=== PATIENT | female | born 1995 | race Caucasian/White ===

== ENCOUNTER 2019-12-19 14:23 | Inpatient (IN) | payer MEDICAID, OTHER ==
[~2019-12-19] VITALS: Ht 152.4 cm; Wt 100.0 kg
[2019-12-19] MEDS ORDERED: AMPH1CAP15 PO (15:25)
[2019-12-19] MEDS ORDERED: MONT10TA4 PO (15:25)
[2019-12-19] MEDS ORDERED: MULTCAP PO (15:25)
[2019-12-19] MEDS ORDERED: LEVOTAB10 PO (15:25)
[2019-12-19] MEDS ORDERED: TOPA50TA8 PO (15:25)
[2019-12-19] MEDS ORDERED: VENL75CA2 PO (15:25)
[2019-12-19] MEDS ORDERED: LEVO50TA5 PO (15:25)
[2019-12-19] MEDS ORDERED: METF-791 PO (15:25)
[2019-12-19] MEDS ORDERED: PREV30TA3 PO (15:25)
[2019-12-19] MEDS ORDERED: LEVO25TA34 PO (19:40)
[2019-12-19] MEDS ORDERED: MOM 30ML SUSPENSION UDC PO PRN (19:45)
[2019-12-19] MEDS ORDERED: ACETAMINOPHEN TAB 650MG DOSE (2X325MG) PO PRN (19:45)
[2019-12-19] MEDS ORDERED: MAALOX 30 ML SUSP *UDC PO PRN (19:45)
[2019-12-19] MEDS ORDERED: LORazepam 2 MG TAB PO PRN (19:45)
[2019-12-19 20:41] VITALS: BP 142/92
[2019-12-19] MEDS: THIAMINE 100 MG TAB PO SCH (23:13)
[2019-12-19] MEDS: traZODone 50 MG TAB PO PRN (23:13)
[2019-12-20 06:00] VITALS: BP 146/84
[2019-12-20 06:05] VITALS: BP 146/84
[2019-12-20] MEDS: LEVOTHYROXINE 25MCG TABLET (0.025MG) PO SCH (06:10)
[2019-12-20] MEDS ORDERED: MULTIVITAMINS/MINERALS THERAP 1 TAB PO SCH (09:00)
[2019-12-20] MEDS ORDERED: FOLIC ACID 1 MG TAB PO SCH (09:00)
[2019-12-20 09:03] VITALS: BP 130/84
[2019-12-20] MEDS: THIAMINE 100 MG TAB PO SCH ×2 (09:05→21:04)
[2019-12-20] MEDS: VENLAFAXINE **XR** 75MG CAPSULE PO SCH (09:05)
[2019-12-20] MEDS: LANSOPRAZOLE SUSPENSION 30 MG/10 ML ORAL SYRINGE (FIRST-LANSOPRAZOLE) PO SCH (09:05)
[2019-12-20] MEDS: MONTELUKAST 10 MG TAB PO SCH (09:06)
[2019-12-20] MEDS: metFORMIN XR 500MG TAB *GLUCOPHAGE XR PO SCH ×2 (09:06→21:04)
[2019-12-20] MEDS: TOPIRAMATE (TopAMAX) 25 MG TAB PO SCH ×2 (09:06→21:05)
--- NOTE | 2019-12-20 09:44 | MHHPEPDOC ---
[facility] History & Physical History and Physical DATE OF ADMISSION: Dec 19, 2019 at 19:45 LEGAL STATUS AT ADMISSION: . CHIEF COMPLAINT: . HISTORY OF PRESENT ILLNESS: Patient is a 24-year-old female, who PSYCHIATRIC REVIEW OF SYSTEMS: Affective: . Anxiety: . Trauma: . Psychosis: . Personality: . PAST PSYCHIATRIC HISTORY: Prior Psychiatric Disorder: . Outpatient Treatment: . Suicidal/Self injurious: [Denies]. Psychotropic Medication History: . ALLERGIES: Please see below. FAMILY PSYCHIATRIC HISTORY: [Denies]. SOCIAL HISTORY: Early Relations/development: . Sibling order: . Paternal relationships: . Education: . Occupational: . Legal: . Marital: . Economic: . Supports: . Abuse/trauma: . SUBSTANCE ABUSE HISTORY: . PAST MEDICAL/SURGICAL HISTORY: [None]. VITAL SIGNS: Please see below. MENTAL STATUS EXAMINATION: General appearance: Patient is a -year old female, who is . Speech: . Thought processes: . Thought content: . Abstract reasoning and computation: . Description of associations: . Description of abnormal or psychotic thoughts: . Judgment: . Insight: . Orientation: . Recent and remote memory: . Attention span and concentration: . Fund of knowledge: . Mood: "." Affect: . DIAGNOSES: 1. . 2. . 3. . ASSESSMENT: PROBLEM LIST: 1. . 2. . 3. . INITIAL TREATMENT PLAN: 1. Patient was admitted on . 2. Complete history was obtained. 3. With patients permission, family will be contacted and database will be expanded. 4. Patients medication regimen will be reviewed and changed accordingly. 5. Patient will be provided with protected environment. 6. Patient will be treated with individual, group, and milieu therapies. 7. Patient will receive supportive psych-education. 8. Discharge planning will commence immediately. 9. Outpatient follow-up treatment will be strongly recommended. 10. The initial treatment plan will focus initially on: * Depression. * Risk for suicide. * Substance abuse. ESTIMATED LENGTH OF STAY: - DAYS. TIME SPENT COUNSELING AND COORDINATING INITIAL CARE: minutes. Vital Signs Vital Signs Date Time Temp Pulse Resp B/P (MAP) Pulse Ox O2 Delivery O2 Flow Rate FiO2 12/20/19 09:03 92 130/84 12/20/19 06:05 98.8 18 12/19/19 20:41 99 Room Air Medications Scheduled Dextroamphetamine/Amphetamine (Dextroamp-Amphet ER 15 mg Cap) 15 Mg Cap.er.24h, 1 CAP PO QAM, (Reported) TAKES NEEDED FOR CONCENTRATION Lansoprazole (Prevacid) 30 Mg Tab.rap.dr, 30 MG PO DAILY, (Reported) Levocetirizine Dihydrochloride (Levocetirizine Dihydrochloride) 5 Mg Tablet, 5 MG PO DAILY, (Reported) Levothyroxine Sodium (Levoxyl) 25 Mcg Tablet, 25 MCG PO DAILY, (Reported) Metformin HCl (Metformin HCl ER) 500 Mg Tab.er.24h, 500 MG PO BID, (Reported) Montelukast Sodium (Montelukast Sodium) 10 Mg Tablet, 10 MG PO DAILY, (Reported) Multivitamin (Multivitamins) 1 Each Capsule, 1 CAP PO DAILY, (Reported) Topiramate (Topamax) 50 Mg Tablet, 50 TAB PO BID, (Reported) Venlafaxine HCl (Venlafaxine HCl ER) 75 Mg Cap.er.24h, 225 MG PO DAILY, (Reported) Allergies Coded Allergies: Penicillins (Verified Allergy, Mild, rash, 12/19/19) Kiwi (Verified Allergy, Unknown, hives, 12/19/19) Sulfa (Sulfonamide Antibiotics) (Verified Allergy, Unknown, hives, 12/19/19) Tetracyclines (Verified Allergy, Unknown, hives, 12/19/19) [place] (Verified Allergy, Unknown, hives, 12/19/19) ciprofloxacin (Verified Allergy, Unknown, hives, 12/19/19) shellfish derived (Verified Allergy, Unknown, 12/19/19) unknown to pt, states she was NEL Mathew DO Dec 20, 2019 09:44
--- NOTE | 2019-12-20 12:37 | HPEPDOC ---
General Date of Admission Dec 19, 2019 at 19:45 Date of Service: Dec 20, 2019 Primary Care Physician: A Attending Physician: KATEY CHRIS MD Chief Complaint The patient is a 24-year-old female admitted with a reason for visit of Unspecified Depressive Disorder. 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 She has a history of prior SI and suicide attempt. At this time, she reports feeling much better and looking forward to returning home to her family and is set to begin graduate school this fall. She otherwise reports that she feels physically well without complaints or symptoms at this time. Home Medications Scheduled Dextroamphetamine/Amphetamine (Dextroamp-Amphet ER 15 mg Cap) 15 Mg Cap.er.24h, 1 CAP PO QAM, (Reported) TAKES NEEDED FOR CONCENTRATION Lansoprazole (Prevacid) 30 Mg Tab.rap.dr, 30 MG PO DAILY, (Reported) Levocetirizine Dihydrochloride (Levocetirizine Dihydrochloride) 5 Mg Tablet, 5 MG PO DAILY, (Reported) Levothyroxine Sodium (Levoxyl) 25 Mcg Tablet, 25 MCG PO DAILY, (Reported) Metformin HCl (Metformin HCl ER) 500 Mg Tab.er.24h, 500 MG PO BID, (Reported) Montelukast Sodium (Montelukast Sodium) 10 Mg Tablet, 10 MG PO DAILY, (Reported) Multivitamin (Multivitamins) 1 Each Capsule, 1 CAP PO DAILY, (Reported) Topiramate (Topamax) 50 Mg Tablet, 50 TAB PO BID, (Reported) Venlafaxine HCl (Venlafaxine HCl ER) 75 Mg Cap.er.24h, 225 MG PO DAILY, (Reported) Allergies Coded Allergies: Penicillins (Verified Allergy, Mild, rash, 12/19/19) Kiwi (Verified Allergy, Unknown, hives, 12/19/19) Sulfa (Sulfonamide Antibiotics) (Verified Allergy, Unknown, hives, 12/19/19) Tetracyclines (Verified Allergy, Unknown, hives, 12/19/19) [place] (Verified Allergy, Unknown, hives, 12/19/19) ciprofloxacin (Verified Allergy, Unknown, hives, 12/19/19) shellfish derived (Verified Allergy, Unknown, 12/19/19) unknown to pt, states she was young Past Medical History Medical History history of PCOD, benign intracranial hypertension, morbid obesity, history of migraine, hypothyroidism, GERD, asthma and depression Surgical History Skin precancerous lesion removal Family History Significant Family History: No pertinent family hx Social History * Smoker: Denies Alcohol: rarely Drugs: denies Recent Travel/Sick Contacts: Denies: Recent travel, Recent sick contacts Psychosocial History: Depression, Suicidal thoughts Senior at [employer], home because of covid-19. 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 No smoking, rare alcohol and no drugs though she has inappropriately taken xanax when suicidal. A-FIB/CHADSVASC A-FIB History Current/History of A-Fib/PAF?: No Current PO Anticoag Therapy: No Age/Risk Factor Scoring CHADSVASC: CHADSVASC Response (Comments) Value Age Risk Factor Age < 65 years old 0 Gender Risk Factor Female 1 Hx of CHF No 0 Hx of HTN No 0 Hx of Stroke/TIA/or VTE No 0 Hx of Diabetes No 0 Hx of Vascular Disease No 0 Total 1 Treatment Treatment ordered: NONE Reason Anticoagulant not given: Not indicated/[id number] Review of Systems Constitutional: Denies: Chills, Fever, Night Sweats Eyes: Denies: Pain, Vision change ENT: Denies: Head Aches, Ear Pain, Dysphagia Skin: Denies: Rash, Lesions, Breakdown Pulmonary: Denies: Dyspnea, Cough Cardiovascular: Denies: Chest Pain, Palpitations, Orthopnea, Paroxysmal Noc. Dyspnea, Lt Headedness Gastrointestinal: Denies: Nausea, Vomiting, Abdominal Pain, Diarrhea Genitourinary: Denies: Dysuria, Frequency, Incontinence, Retention Hematologic: Denies: Bruising, Bleeding Excessively Endocrine: Denies: Polydipsia, Polyphagia, Polyuria, Heat Intolerance, Cold Int olerance, Other Endocrine Sx Musculoskeletal: Denies: Neck Pain, Back Pain, Joint Pain, Muscle Pain, Spasms Neurological: Denies: Weakness, Numbness, Change in speech, Confusion Psych: Reports: Depression, Thoughts of Self Harm Physical Examination General Exam: Positive: Alert, No Acute Distress, Other (morbidly obese) Eye Exam: Positive: PERRLA, Conjunctiva & lids normal, EOMI; Negative: Sclera icteric ENT Exam: Positive: Atraumatic, Mucous membr. moist/pink, Pharynx Normal Neck Exam: Positive: Supple; Negative: JVD, thyromegaly Chest Exam: Positive: Clear to auscultation, Normal air movement Heart Exam: Positive: Rate Normal, Regular Rhythm, Normal S1, Normal S2; Negative: Murmurs, Rubs Abdomen Exam: Positive: Normal bowel sounds, Soft, Other (obese); Negative: Tenderness, Hepatospenomegaly Extremity Exam: Positive: Normal pulses; Negative: Clubbing, Cyanosis, Edema Skin Exam: Positive: Nl turgor and temperature; Negative: Breakdown, Lesion Neuro Exam: Positive: Normal Gait, Normal Speech, Cranial Nerves 3-12 NL, Reflexes 2+ Psych Exam: Positive: Mental status NL, Mood NL, Oriented x 3 Vital Signs Vital Signs Date Time Temp Pulse Resp B/P (MAP) Pulse Ox O2 Delivery O2 Flow Rate FiO2 12/20/19 09:03 92 130/84 12/20/19 06:05 98.8 18 12/19/19 20:41 99 Room Air Assessment/Plan 24 year old woman with a history of PCOS, benign intracranial hypertension, morbid obesity, history of migraine, hypothyroidism, GERD, asthma and depression who was admitted to [facility] after discharge from [facility] where she was admitted for intentional overdose. Plan: Hypothyroidism: -continue home synthroid PCOS: -continue home metformin 500 BID Asthma: -continue home montelukast History of migraines: -continue home topamax GERD: -continue home lansoprazole c/f alcohol withdrawal: She reports that she rarely consumes alcohol and when she overdosed she used liquor that was in the home to down the xanax -she is on CIWA protocol, with symptoms triggered ativan PRN -thiamine, folate Depression with SI: management per primary psychiatry team -Will sign off at this time, thank you for the consultation. Plan / VTE VTE Prophylaxis Ordered?: No VTE Exclusion Mechanical Proph: Low Risk for VTE VTE Exclusion Pharmacological: At Low Risk for VTE KATEY CHRIS MD Dec 20, 2019 12:37
[2019-12-20 13:49] LABS: ALBUMIN 3.9 GM/DL (3.2-5.2); ALT/SGPT 38 U/L (12-78); BILIRUBIN,TOTAL 0.3 MG/DL (0.2-1.0); BLOOD UREA NITROGEN 8 MG/DL (7-18); CARBON DIOXIDE LEVEL 23 MEQ/L (21-32); CHLORIDE LEVEL 110 MEQ/L (98-107); CREATININE FOR GFR 0.63 MG/DL (0.55-1.30); FREE T4 1.09 NG/DL (0.76-1.46); GLOMERULAR FILTRATION RATE > 60.0 (>60); GLUCOSE, FASTING 93 MG/DL (70-100); POTASSIUM SERUM 4.2 MEQ/L (3.5-5.1); SODIUM LEVEL 140 MEQ/L (136-145); THYROID STIMULATING HORMONE 0.064 uIU/ML (0.358-3.740); TOTAL PROTEIN 7.7 GM/DL (6.4-8.2)
[2019-12-20 17:18] VITALS: BP 129/71
[2019-12-20 18:00] VITALS: BP 129/71
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
[2019-12-20] MEDS: traZODone 50 MG TAB PO PRN (21:05)
[2019-12-20 22:00] VITALS: BP 140/88
[2019-12-21 06:09] VITALS: BP 132/88
[2019-12-21] MEDS: LEVOTHYROXINE 25MCG TABLET (0.025MG) PO SCH (06:10)
[2019-12-21] MEDS: MONTELUKAST 10 MG TAB PO SCH (08:23)
[2019-12-21] MEDS: metFORMIN XR 500MG TAB *GLUCOPHAGE XR PO SCH (08:23)
[2019-12-21] MEDS: LANSOPRAZOLE SUSPENSION 30 MG/10 ML ORAL SYRINGE (FIRST-LANSOPRAZOLE) PO SCH (08:23)
[2019-12-21] MEDS: VENLAFAXINE **XR** 75MG CAPSULE PO SCH (08:24)
[2019-12-21] MEDS: TOPIRAMATE (TopAMAX) 25 MG TAB PO SCH (08:24)
--- NOTE | 2019-12-21 09:23 | ECGEPIP ---
[facility] Test Date: 2019-12-20 Pat Name: ANNABELLE CORLEY Department: Room: [place] [address] Gender: Female Program/Music Director: ESMER : 1995 Requested By: VALENTINA GOMEZ Order Number: [id number] Reading MD: Yovani Hammer Measurements Intervals [place] Rate: 91 P: 32 SD: 162 QRS: 10 QRSD: 94 T: 4 QT: 350 QTc: 431 Interpretive Statements Normal sinus rhythm incomplete right bundle branch block Comparison tracing not on file Electronically Signed on 12-21-2019 9:22:51 EDT by Yovani Hammer
--- NOTE | 2019-12-21 16:08 | MHDSPDOC ---
[facility] Discharge Summary Discharge Summary DATE OF ADMISSION: Dec 19, 2019 at 19:45 DATE OF DISCHARGE: Dec 21, 2019 at 13:25 Discharge Diagnoses Unspecified depressive disorder. PTSD. Unspecified anxiety disorder. History of Present Illness Carolyn Ro is a 24-year-old woman who presents after an intentional overdose on 12/18/19 of an unspecified amount of Xanax and alcohol. This was in the setting of increased psychosocial stress, including demanding coursework at [employer], relationship conflict with her mother and brother, and the compounding of longstanding problems, notably history of PTSD and idiopathic intracranial hypertension. On evaluation, she stated that the overdose was "stupid" and "impulsive". When asked if this current presentation as well as a previously endorsed suicide attempt by cutting were actual attempts, i.e. with the intention of dying, she replied that she was uncertain. She stated that she just wanted the "pain to go away" but was not sure if she actually wanted to . She states that she is happy that she is alive. She stated that the Xanax was an old prescription. She has had worsening depressed mood over the last couple of months due to the aforementioned psychosocial stressors. Her medical problems, notably hypothyroidism, idiopathic intracranial hypertension with a PCOS rule out, and significant weight gain over the past couple of years were cited by her as very stressful for her. She denies binging, purging, or severe caloric restriction. S he reports a history of anorexia in high school, but denies current symptoms. She also reports that her diagnosis of PTSD has not had very salient symptoms recently. She denies nightmares, flashbacks, avoidance behavior, or intrusive memories. Consultants Routine medical screening. Treatment and Progress Carolyn was continued on her home psychotropic medications. She reported impro vement in her presenting symptoms and stated that she was ready to go home and began outpatient treatment. Discharge Assessment On the day of discharge, the patient denied suicidal thoughts and denied safety concerns going home. Given her normal mental status exam, denial of SI, future orientation to complete her schoolwork, and willingness to resume outpatient treatments/referral, the patient no longer meets involuntary criteria for hospitalization, and thus her involuntary legal paperwork will not be extended. She did not wish to remain in the hospital under voluntary status, so the patient will be discharged in good [place]. Physical Exam Vitals: See below. General appearance: Appears staged age with good hygiene and grooming; dressed in seasonally-appropriate attire MSK: Normal Speech: WNL for rate, volume, fluency, and amount Thought process: linear, organized, and goal-directed Thought content: No SI/HI/AVH/delusional thinking elicited Description of patient's judgement and insight: good Mood and affect: normal Follow Up Appointments The discharge planners have worked to arrange outpatient follow-up. During the pre-discharge meeting, the patient was evaluated for further issues of lethality in order to address them fully before discharge. They worked on safety planning with the patient's family members to ensure that the patient will have a safe and effective discharge. Time Spent 20 minutes, with more than 50% spent in counseling and coordination of care. Vital Signs/I&Os Vital Signs Date Time Temp Pulse Resp B/P (MAP) Pulse Ox O2 Delivery O2 Flow Rate FiO2 12/21/19 06:09 98.4 106 16 132/88 (103) 12/19/19 20:41 99 Room Air Medications Scheduled Dextroamphetamine/Amphetamine (Dextroamp-Amphet ER 15 mg Cap) 15 Mg Cap.er.24h, 1 CAP PO QAM, (Reported) TAKES NEEDED FOR CONCENTRATION Lansoprazole (Prevacid) 30 Mg Tab.rap.dr, 30 MG PO DAILY, (Reported) Levocetirizine Dihydrochloride (Levocetirizine Dihydrochloride) 5 Mg Tablet, 5 MG PO DAILY, (Reported) Levothyroxine Sodium (Levoxyl) 25 Mcg Tablet, 25 MCG PO DAILY, (Reported) Metformin HCl (Metformin HCl ER) 500 Mg Tab.er.24h, 500 MG PO BID, (Reported) Montelukast Sodium (Montelukast Sodium) 10 Mg Tablet, 10 MG PO DAILY, (Reported) Multivitamin (Multivitamins) 1 Each Capsule, 1 CAP PO DAILY, (Reported) Topiramate (Topamax) 50 Mg Tablet, 50 TAB PO BID, (Reported) Venlafaxine HCl (Venlafaxine HCl ER) 75 Mg Cap.er.24h, 225 MG PO DAILY, (Repo rted) Allergies Coded Allergies: Penicillins (Verified Allergy, Mild, rash, 12/19/19) Kiwi (Verified Allergy, Unknown, hives, 12/19/19) Sulfa (Sulfonamide Antibiotics) (Verified Allergy, Unknown, hives, ) Tetracyclines (Verified Allergy, Unknown, hives, 12/19/19) [facility] (Verified Allergy, Unknown, hives, 12/19/19) ciprofloxacin (Verified Allergy, Unknown, hives, 12/19/19) shellfish derived (Verified Allergy, Unknown, 12/19/19) unknown to pt, states she was young GME ATTESTATION GME ATTESTATION My faculty preceptor for this patient encounter was physically present during the encounter and was fully available. All aspects of the patient interview, examination, medical decision making process, and medical care plan development were reviewed and approved by the faculty preceptor. The faculty preceptor is aware and concurs with the plan as stated in the body of this note and will attest to such by his/her cosignature. VALENTINA GOMEZ MD Dec 21, 2019 16:08
== END 2019-12-21 13:25 | disposition home or self-care (01) | DRG 754 ==
LOC: M ED 14:23 → M ED INP 19:45 → M PSY 20:35
PROVIDERS: ADMIT Psychiatry & Neurology Addiction Medicine; ATTEND Psychiatry & Neurology Addiction Medicine
DX: F32.9 Major depressive disorder, single episode, unspecified (principal); Z68.41 Body mass index [BMI] 40.0-44.9, adult; E66.01 Morbid (severe) obesity due to excess calories; F43.10 Post-traumatic stress disorder, unspecified; F41.9 Anxiety disorder, unspecified; T42.4X2A Poisoning by benzodiazepines, intentional self-harm, initial encounter; T51.92XA Toxic effect of unspecified alcohol, intentional self-harm, initial encounter; J45.909 Unspecified asthma, uncomplicated; G43.909 Migraine, unspecified, not intractable, without status migrainosus; E28.2 Polycystic ovarian syndrome; E03.9 Hypothyroidism, unspecified; Z79.84 Long term (current) use of oral hypoglycemic drugs; Z79.899 Other long term (current) drug therapy; Z88.0 Allergy status to penicillin; Z88.2 Allergy status to sulfonamides; Z88.1 Allergy status to other antibiotic agents; Z63.8 Other specified problems related to primary support group